=== PATIENT | male | born 1985 | race Hispanic/Latino ===

== ENCOUNTER 2019-05-22 12:09 | Observation (INO) | payer BC ==
[~2019-05-22] VITALS: Ht 175.3 cm; Wt 108.9 kg
[2019-05-22] MEDS ORDERED: SODIUM CHLORIDE 0.9% 1000ML 1,000 ML IV SCH (13:00)
[2019-05-22] MEDS ORDERED: SODIUM CHLORIDE 0.9% 1000ML 1,000 ML ONE ×2 (13:36→18:11)
[2019-05-22] MEDS ORDERED: VANCOMYCIN 1GM/NS 250 ML 250 ML ONE (13:36)
[2019-05-22] MEDS ORDERED: VANCOMYCIN 1GM/NS 250 ML 250 ML IV ONE (14:00)
[2019-05-22] MEDS ORDERED: IBUPROFEN 600 MG TAB PO STA (14:50)
--- NOTE | 2019-05-22 14:52 | Diagnostic Imaging Report ---
EXAM: Right Lower Extremity Duplex Ultrasound INDICATION: Swelling COMPARISON: None TECHNIQUE: Durant scale, color Doppler and spectral waveform analysis of the right lower extremity deep venous system was performed. FINDINGS: Common Femoral: Fully compressible with normal spontaneous waveforms. Proximal Greater Saphenous: Fully compressible. Femoral: Fully compressible with normal spontaneous waveforms. Normal response to augmentation. Proximal Deep Femoral: Normal spontaneous waveforms. Popliteal: Fully compressible with normal spontaneous waveforms. IMPRESSION: No evidence of deep venous thrombosis above the right calf. Signed by: Dr. Aracelis Arenas M.D. on 05/22/2019 2:49 PM
[2019-05-22] MEDS ORDERED: ACETAMINOPHEN 325 MG TAB PO ONE (15:00)
[2019-05-22] MEDS ORDERED: IBUPROFEN 200 MG TAB ONE (15:00)
[2019-05-22] MEDS ORDERED: ACETAMINOPHEN 325 MG TAB ONE (15:00)
[2019-05-22] MEDS ORDERED: PIPER-TAZ 3.375 GM 50 ML IV ONE (15:15)
[2019-05-22] MEDS ORDERED: PIPER-TAZ 3.375 GM 50 ML ONE (15:20)
[2019-05-22] MEDS ORDERED: ONDANSETRON HCL INJ 2MG/ML 2ML 2 MG/ML VIAL IV PRN (15:30)
[2019-05-22] MEDS ORDERED: MORPHINE SULFATE INJ 4 MG/ML INJ 1ML IV PRN (15:30)
--- OUTSIDE RECORDS SUMMARY | 2019-05-22 15:32 | XMS REPORT ---
Author Author [facility] Address Unknown Phone Unavailable Care Team Providers Care Transportation Escort Name Role Phone Simba MASON Unavailable Unavailable Problems This patient has no known problems. Allergies, Adverse Reactions, Alerts This patient has no known allergies or adverse reactions. Medications This patient has no known medications. Results Test Description Test Time Test Comments Text Results Atomic Results Result Comments US LOW EXT VEINS LIMITED UNI 2019-05-22 14:48:00 [place] [address] Patient Name: GODWIN CALABRESE MR #: [id number] : 1985 Age/Sex: 33/M Req #: [id number] Adm Physician: Ordered by: REGAN MASON MD Report #: [id number] Location: [facility] Room/Bed: Procedure: [id number] HOPD/US LOW EXT VEINS LIMITED UNI Exam Date: 05/22/19 Exam Time: 1433 REPORT STATUS: Signed EXAM: Right Lower Extremity Duplex Ultrasound INDICATION: Swelling COMPARISON: None TECHNIQUE: Durant scale, color Doppler and spectral waveform analysis of the right lower extremity deep venous system was performed. FINDINGS: Common Femoral: Fully compressible with normal spontaneous waveforms. Proximal Greater Saphenous: Fully compressible. Femoral: Fully compressible with normal spontaneous waveforms. Normal response to augmentation. Proximal Deep Femoral: Normal spontaneous waveforms. Popliteal: Fully compressible with normal spontaneous waveforms. IMPRESSION: No evidence of deep venous thrombosis above the right calf. Signed by: Dr. Colby Alcaraz M.D. on 05/22/2019 2:49 PM Dictated By: COLBY ALCARAZ MD 1444 Transcribed By: MARTINEZ on 05/22/191448 COPY TO: REGAN MASON MD
[2019-05-22] MEDS ORDERED: PIPER-TAZ 3.375 GM 50 ML IV SCH (16:00)
[2019-05-22] MEDS ORDERED: IBUPROFEN 600 MG TAB PO PRN (16:30)
[2019-05-22] MEDS ORDERED: ACETAMINOPHEN 325 MG TAB PO PRN (16:30)
--- NOTE | 2019-05-22 17:01 | NUR ---
[facility] called for transport
--- NOTE | 2019-05-22 17:50 | NUR ---
Report to DAWSON Davalos
[2019-05-22] MEDS: SODIUM CHLORIDE 0.9% 1000ML 1,000 ML IV SCH (18:00)
--- NOTE | 2019-05-22 19:00 | NUR ---
received report from day nurse. patient is a new admit. patient is resting comfortably in bed. bed is in lowest position and call benavides is within reach. will continue to monitor patient.
[2019-05-22 19:05] VITALS: BP 122/66
[2019-05-22 19:58] VITALS: BP 122/66
[2019-05-22 20:00] VITALS: BP 122/66
[2019-05-22] MEDS: PIPER-TAZ 3.375 GM 50 ML IV SCH (22:00)
[2019-05-23] VITALS (8 sets, daily range): BP systolic 120–127; BP diastolic 63–74
[2019-05-23] MEDS: PIPER-TAZ 3.375 GM 50 ML IV SCH ×4 (02:54→23:05)
[2019-05-23 06:06] LABS: BASOPHILS % 0.2 % (0.0-1.0); EOSINOPHILS # (AUTO) 0.1 (0.0-0.4); EOSINOPHILS % 1.3 % (0.0-6.0); HEMATOCRIT 35.2 % (38.2-49.6); HEMOGLOBIN 11.9 g/dL (14.0-18.0); LYMPHOCYTES # (AUTO) 0.6 (1.0-3.2); LYMPHOCYTES % 10.3 % (18.0-39.1); MEAN CORPUSCULAR HEMOGLOBIN 28.7 pg (28-32); MEAN CORPUSCULAR HGB CONC 33.8 g/dL (31-35); MEAN CORPUSCULAR VOLUME 84.8 fL (81-99); MONOCYTES # (AUTO) 0.4 (0.2-0.8); MONOCYTES % 6.8 % (4.4-11.3); NEUTROPHILS % 81.1 % (38.7-80.0); PLATELET COUNT 188 x10e3/uL (140-360); RED BLOOD COUNT 4.15 x10e6/uL (4.3-5.7); RED CELL DISTRIBUTION WIDTH 13.9 % (11.7-14.4)
[2019-05-23 06:34] LABS: ALANINE AMINOTRANSFERASE 79 IU/L (0-55); ALBUMIN 3.1 g/dL (3.5-5.0); ALBUMIN/GLOBULIN RATIO 0.7 (0.8-2.0); ALKALINE PHOSPHATASE 86 IU/L (40-150); ANION GAP 11.9 mmol/L (8-16); BLOOD UREA NITROGEN 11 mg/dL (7-26); BUN/CREATININE RATIO 11 (6-25); CALCIUM 8.9 mg/dL (8.4-10.2); CARBON DIOXIDE 25 mmol/L (22-29); CHLORIDE 103 mmol/L (98-107); EST GLOMERULAR FILTRATION RATE > 60 ML/MIN (60-); GLUCOSE 151 mg/dL (74-118); POTASSIUM 3.9 mmol/L (3.5-5.1); SODIUM 136 mmol/L (136-145)
--- NOTE | 2019-05-23 06:36 | NUR ---
report given to day nurse. patient is resting comfortably in bed. bed is in lowest position and call light is within reach.
[2019-05-23] MEDS: SODIUM CHLORIDE 0.9% 1000ML 1,000 ML IV SCH ×3 (07:18→20:36)
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
[2019-05-23 09:56] LABS: CHOL/HDL RATIO 2.9 (3.9-4.7)
[2019-05-23 11:05] LABS: BILIRUBIN,URINE NEGATIVE (NEGATIVE); CLARITY,URINE SL CLOUDY (CLEAR); COLOR,URINE YELLOW (YELLOW); KETONES,URINE NEGATIVE (NEGATIVE); LEUKOCYTE ESTERASE ,URINE NEGATIVE (NEGATIVE); NITRITE,URINE NEGATIVE (NEGATIVE); PROTEIN,URINE DIPSTICK TRACE (NEGATIVE); URINE UROBILINOGEN 4 mg/dL (0.2 - 1)
[2019-05-23 11:10] LABS: BACTERIA,URINE FEW /HPF; EPITHELIAL CELLS,URINE FEW /LPF; RBC,URINE 0-5 /HPF (0-5); WBC,URINE (MAN) 0-5 /HPF (0-5)
[2019-05-23] MEDS: CLINDAMYCIN 300MG 50 ML IV SCH ×2 (13:21→20:36)
--- NOTE | 2019-05-23 18:42 | NUR ---
Report given to oncoming nurse of patient's status. Resting in bed. No s/s of acute distress noted.
--- NOTE | 2019-05-23 18:52 | NUR ---
RECEIVED REPORT FROM DAY NURSE. PATIENT IS RESTING COMFORTABLY IN BED. BED IS IN LOWEST POSITION AND CALL GORDON IS WITHIN REACH. WILL CONTINUE TO MONITOR PATIENT.
[2019-05-24] MEDS: PIPER-TAZ 3.375 GM 50 ML IV SCH (03:28)
[2019-05-24 04:33] VITALS: BP 123/67
[2019-05-24] MEDS: SODIUM CHLORIDE 0.9% 1000ML 1,000 ML IV SCH (05:04)
[2019-05-24] MEDS: CLINDAMYCIN 300MG 50 ML IV SCH (05:04)
--- NOTE | 2019-05-24 06:32 | NUR ---
D/C summary Principal Dx: Cellulitis Sepsis Transaminitis Obesity BMI 35.4 Secondary Dx: Nicotine dependence PLAN IV abx IVF hba1c/lipids scd Dispo; Hba1c/LDL 6.6/32 d/c home f/u 1 week stable d/c>35mins Jarret Hicks MD, PhD.
[2019-05-24] MEDS ORDERED: CLINDAMYCIN HC300 MG PO (06:33)
--- NOTE | 2019-05-24 06:55 | NUR ---
REPORT GIVEN TO DAY NURSE. PATIENT IS RESTING COMFORTABLY IN BED. BED IS IN LOWEST POSITION AND CALL LIGHT IS WITHIN REACH.
[2019-05-24 07:38] VITALS: BP 134/87
[2019-05-24 07:43] VITALS: BP 131/87
--- NOTE | 2019-05-24 08:55 | NUR ---
patient alert and oriented. discharge instructions given at this time, patient verbalized understanding. IV discontinued, catheter in tact and small dressing applied. patient refused wheelchair assistance but will ambulate with assist to personal auto for significant other to drive home.
[2019-05-24] MEDS ORDERED: ONDANSETRON HCL 4 MG ORAL DISINTEGRATING TAB PO PRN (09:15)
== END 2019-05-24 09:00 | disposition home or self-care (01) ==
LOC: FSED 12:09 → ERHOLD 15:19 → IMCU 18:50
PROVIDERS: ADMIT Internal Medicine; ATTEND Internal Medicine
DX: A41.9 Sepsis, unspecified organism (principal); L03.115 Cellulitis of right lower limb; F17.210 Nicotine dependence, cigarettes, uncomplicated; E66.9 Obesity, unspecified; Z68.35 Body mass index [BMI] 35.0-35.9, adult
CPT/HCPCS: 36415; 80053 ×2; 80061; 81001; 83036; 85025 ×2; 85379; 87040; 93971; 99284; G0378 ×3; J2270; J2405; J2543 ×3; J3370; J7030 ×3

== ENCOUNTER 2020-04-29 09:36 | Emergency (ER) | payer SELFPAY ==
[~2020-04-29] VITALS: Ht 175.3 cm; Wt 119.4 kg
[~2020-04-29 09:36] MED LIST: CLINDAMYCIN HC300 MG PO
[2020-04-29] MEDS ORDERED: CLINDAMYCIN PHOS 600 MG/ 4 ML VIAL IM ONE (10:07)
[2020-04-29] MEDS ORDERED: PREDNISONE 20 MG TAB PO ONE (10:15)
[2020-04-29] MEDS ORDERED: KETOROLAC TROMETHAMINE 60 MG/2 ML VIAL IM ONE (10:15)
--- OUTSIDE RECORDS SUMMARY | 2020-04-29 10:17 | XMS REPORT | Continuity of Care Document ---
Author Author [facility] t Organization [facility] Address [address] [place] [address] Phone Unavailable Care Team Providers Care Agency Legal Counsel Name Role Phone NO, PCP PCP Unavailable Simba MASON Attphys Unavailable Payers Payer Name Policy Type Policy Number Effective Date Expiration Date S dorian [employer] [place] Ppo [id number] 2018 00:00:00 [facility] Problems This patient has no known problems. Allergies, Adverse Reactions, Alerts This patient has no known allergies or adverse reactions. Medications Ordered Medication Name Filled Medication Name Start Date Stop Da te Current Medication? Ordering Clinician Indication Dosage Frequency Signature (SIG) Comments Components Source Clindamycin Hcl 300 Mg Capsule Clindamycin Hcl 300 Mg Capsul e 2019-05-24 00:00:00 Yes Jarret Hicks Md 300 Every 8 Hours [facility] Procedures This patient has no known procedures. Encounters Start Date/Time End Date/Time Encounter Type Admission Type [facility] Care Department Encounter ID Source 2019-05-22 15:19:00 2019-05-24 09:00:00 Discharged Inpatient (obs) 1 REGAN MASON [facility] [id number] [facility] Results Test Description Test Time Test Comments Results Result Comments Source Blood Culture 2019-05-23 14:51:00 Test Item Blood Culture (test code = 89936800) NO GROWTH AFTER 24 HOURS [facility] [id number] 11:10:00* Test Item Value Reference Range Interpretation Comments Urine WBC (test code = 5821-4) 0-5 0-5 [facility] [id number] 11:10:00* Test Item Value Reference Range Interpretation Comments Urine RBC (test code = 07762-2) 0-5 0-5 [facility] Hagzxkar2775-41-91 11:10:00* Test Item Value Reference Range Interpretation Comments Urine Bacteria (test code = 96489-1) FEW NONE [facility] Epithelial [id number] 11:10:00 * Test Item Value Reference Range Interpretation Comments Urine Epithelial Cells (test code = 53373-1) FEW NONE [facility] Jzkfv9512-35-28 11:08:00* Test Item Value Reference Range Interpretation Comments Urine Color (test code = 5778-6) YELLOW YELLOW [facility] Tdbhfvp0433-38-25 11:08:00* Test Item Value Reference Range Interpretation Comments Urine Clarity (test code = 14572-6) SL CLOUDY CLEAR H [facility] Specific Znyqcnu6068-37-39 11:08:00 * Test Item Value Reference Range Interpretation Comments Urine Specific [place] (test code = 5811-5) 1.020 1.010-1.02 5 [facility] [id number] 11:08:00* Test Item Value Reference Range Interpretation Comments Urine pH (test code = 01629-0) 5.5 5-7 [facility] Leukocyte Gredfqmj6923-01-14 11:08:00* Test Item Value Reference Range Interpretation Comments Urine Leukocyte Esterase (test code = 00603-2) NEGATIVE NEGATIV E [facility] Shehbri4955-85-39 11:08:00* Test Item Value Reference Range Interpretation Comments Urine Nitrite (test code = 84316-5) NEGATIVE NEGATIVE [facility] Qmoebtn4626-12-24 11:08:00* Test Item Value Reference Range Interpretation Comments Urine Protein (test code = 32578-2) TRACE NEGATIVE H [facility] Glucose (UA)2019-05-23 11:08:00* Test Item Value Reference Range Interpretation Comments Urine Glucose (UA) (test code = 86145-7) NEGATIVE NEGATIVE [facility] Srwefgf8176-59-74 11:08:00* Test Item Value Reference Range Interpretation Comments Urine Ketones (test code = 13458-9) NEGATIVE NEGATIVE [facility] Iboxglauzdfs9184-66-60 11:08:00* Test Item Value Reference Range Interpretation Comments Urine Urobilinogen (test code = 46871-0) 4 0.2-1 [facility]ville[facility] Qbrjqzdks5491-86-19 11:08:00* Test Item Value Reference Range Interpretation Comments Urine Bilirubin (test code = 1977-8) NEGATIVE NEGATIVE [facility] Orvdt5360-35-12 11:08:00* Test Item Value Reference Range Interpretation Comments Urine Blood (test code = 51612-2) NEGATIVE NEGATIVE [facility]villeTriglycerides Rqqac8466-92-17 10:00:00* Test Item Value Reference Range Interpretation Comments Triglycerides Level (test code = 2571-8) 156 0-149 H [facility]villeCholesterol Hvqvj9565-31-81 10:00:00* Test Item Value Reference Range Interpretation Comments Cholesterol Level (test code = 2093-3) 96 0-199 Less than 200 mg/dL Low Zjjf644 - 239 mg/dL Borderline Bigt647 m g/dl and greater High Risk [facility]villeLDL Wlcuwknspjo6248-63-06 10:00:00* Test Item Value Reference Range Interpretation Comments LDL Cholesterol (test code = 2089-1) 32 60-130 L [facility]villeHDL Xbgyhnffokd3073-64-37 10:00:00* Test Item Value Reference Range Interpretation Comments HDL Cholesterol (test code = 2085-9) 33 40-60 L [facility]villeCholesterol/HDL Ipcfs7958-16-44 10:00:00 * Test Item Value Reference Range Interpretation Comments Cholesterol/HDL Ratio (test code = 9830-1) 2.9 3.9-4.7 L [facility]villeHemoglobin A1c Msckerh0160-47-91 09:54:00 * Test Item Value Reference Range Interpretation Comments Hemoglobin A1c Percent (test code = Hemoglobin A1c Percent) 6.6 4.0-7.0 [facility] Yqcjx4073-79-88 06:34:00* Test Item Value Reference Range Interpretation Comments Sodium Level (test code = 2951-2) 136 136-145 [facility]villePotassium Vrnkn4724-32-30 06:34:00* Test Item Value Reference Range Interpretation Comments Potassium Level (test code = 2823-3) 3.9 3.5-5.1 [facility]villeChloride Mbjev8597-04-45 06:34:00* Test Item Value Reference Range Interpretation Comments Chloride Level (test code = 2075-0) 103 98-107 [facility]villeCarbon Dioxide Rvttq8189-15-53 06:34:00* Test Item Value Reference Range Interpretation Comments Carbon Dioxide Level (test code = 2028-9) 25 22-29 [facility]villeAnion Kxs4522-95-97 06:34:00* Test Item Value Reference Range Interpretation Comments Anion Gap (test code = 51487-3) 11.9 8-16 [facility]villeBlood Urea Knamvrxx2380-65-28 06:34:00* Test Item Value Reference Range Interpretation Comments Blood Urea Nitrogen (test code = 3094-0) 11 7-26 [facility]villeCreatinine2019-09-15 06:34:00* Test Item Value Reference Range Interpretation Comments Creatinine (test code = 2160-0) 1.00 0.72-1.25 [facility]villeBUN/Creatinine Wulkw1737-69-38 06:34:00* Test Item Value Reference Range Interpretation Comments BUN/Creatinine Ratio (test code = 3097-3) 11 6-25 [facility] BrownsvilleEstimat Glomerular Filtration Rate 2019-05-23 06:34:00* Test Item Value Reference Range Interpretation Comments Estimat Glomerular Filtration Rate (test code = 066045747) > 60 >60 Ranges were taken from the National Kidney Disease Education Program and the [place] count includes the [facility] Kidney Foundation literature.Reference ranges:60 or greater: Axxlpk70-87 ( for 3 consecutive months): Chronic kidney disease 15 or less: Kidney failureVal[facility] – [facility]villeGlucose Cldsd8372-49-19 06:34:00* Test Item Value Reference Range Interpretation Comments Glucose Level (test code = CCM0929) 151 74-118 H [facility]villeCalcium Cyvlt7949-87-24 06:34:00* Test Item Value Reference Range Interpretation Comments Calcium Level (test code = 01650-3) 8.9 8.4-10.2 [facility] BrownsvilleTotal Opjsbeoim7390-12-66 06:34:00* Test Item Value Reference Range Interpretation Comments Total Bilirubin (test code = 1975-2) 1.3 0.2-1.2 H [facility] BrownsvilleAspartate Amino Transf (AST/SGOT) 2019-05-23 06:34:00* Test Item Value Reference Range Interpretation Comments Aspartate Amino Transf (AST/SGOT) (test code = Aspartate Amino Transf (AST/SGOT)) 68 5-34 H [facility] BrownsvilleAlanine Aminotransferase (ALT/SGPT) 2019-05-23 06:34:00* Test Item Value Reference Range Interpretation Comments Alanine Aminotransferase (ALT/SGPT) (test code = 1742-6) 79 0-55 H [facility] Ghwllrn7105-89-18 06:34:00* Test Item Value Reference Range Interpretation Comments Total Protein (test code = 2885-2) 7.7 6.5-8.1 [facility] BrownsvilleAlbumin2019-09-15 06:34:00* Test Item Value Reference Range Interpretation Comments Albumin (test code = 1751-7) 3.1 3.5-5.0 L [facility] BrownsvilleGlobulin2019-09-15 06:34:00* Test Item Value Reference Range Interpretation Comments Globulin (test code = 19046-0) 4.6 2.3-3.5 H [facility] BrownsvilleAlbumin/Globulin Bztuj5005-09-35 06:34:00 * Test Item Value Reference Range Interpretation Comments Albumin/Globulin Ratio (test code = 1759-0) 0.7 0.8-2.0 L [facility]villeAlkaline Ypasxuuoqzt6690-68-61 06:34:00* Test Item Value Reference Range Interpretation Comments Alkaline Phosphatase (test code = 6768-6) 86 40-150 [facility]villeWhite Blood Nbvcd6058-88-25 06:14:00* Test Item Value Reference Range Interpretation Comments White Blood Count (test code = 6690-2) 6.14 4.8-10.8 [facility]villeRed Blood Ieuei0986-21-26 06:14:00* Test Item Value Reference Range Interpretation Comments Red Blood Count (test code = 789-8) 4.15 4.3-5.7 L [facility]villeHemoglobin2019-09-15 06:14:00* Test Item Value Reference Range Interpretation Comments Hemoglobin (test code = 71843-0) 11.9 14.0-18.0 L [facility]villeHematocrit2019-09-15 06:14:00* Test Item Value Reference Range Interpretation Comments Hematocrit (test code = 4544-3) 35.2 38.2-49.6 L [facility] BrownsvilleMean Corpuscular Jnsmur0121-04-36 06:14:00* Test Item Value Reference Range Interpretation Comments Mean Corpuscular Volume (test code = 787-2) 84.8 81-99 [facility] BrownsvilleMean Corpuscular Beorejzaxr8515-50-65 06:14:00* Test Item Value Reference Range Interpretation Comments Mean Corpuscular Hemoglobin (test code = 785-6) 28.7 28-32 [facility] BrownsvilleMean Corpuscular Hemoglobin Concent 2019-05-23 06:14:00* Test Item Value Reference Range Interpretation Comments Mean Corpuscular Hemoglobin Concent (test code = 786-4) 33.8 31-35 [facility]villeRed Cell Distribution Ydajw7902-24-69 06:14:00* Test Item Value Reference Range Interpretation Comments Red Cell Distribution Width (test code = 32228-9) 13.9 11.7 -14.4 [facility] BrownsvillePlatelet Bfibd8604-65-72 06:14:00* Test Item Value Reference Range Interpretation Comments Platelet Count (test code = 777-3) 188 140-360 [facility]villeNeutrophils (%) (Auto)2019-05-23 06:14:00 * Test Item Value Reference Range Interpretation Comments Neutrophils (%) (Auto) (test code = 39246-8) 81.1 38.7-80.0 H [facility] BrownsvilleLymphocytes (%) (Auto)2019-05-23 06:14:00 * Test Item Value Reference Range Interpretation Comments Lymphocytes (%) (Auto) (test code = 736-9) 10.3 18.0-39.1 L [facility]villeMonocytes (%) (Auto)2019-05-23 06:14:00* Test Item Value Reference Range Interpretation Comments Monocytes (%) (Auto) (test code = 5905-5) 6.8 4.4-11.3 [facility]villeEosinophils (%) (Auto)2019-05-23 06:14:00 * Test Item Value Reference Range Interpretation Comments Eosinophils (%) (Auto) (test code = 713-8) 1.3 0.0-6.0 [facility]villeBasophils (%) (Auto)2019-05-23 06:14:00* Test Item Value Reference Range Interpretation Comments Basophils (%) (Auto) (test code = 706-2) 0.2 0.0-1.0 [facility] BrownsvilleIM GRANULOCYTES %2019-05-23 06:14:00* Test Item Value Reference Range Interpretation Comments IM GRANULOCYTES % (test code = IM GRANULOCYTES %) 0.3 0.0- 1.0 [facility]villeNeutrophils # (Auto)2019-05-23 06:14:00* Test Item Value Reference Range Interpretation Comments Neutrophils # (Auto) (test code = 751-8) 5.0 2.1-6.9 [facility]villeLymphocytes # (Auto)2019-05-23 06:14:00* Test Item Value Reference Range Interpretation Comments Lymphocytes # (Auto) (test code = 78002-3) 0.6 1.0-3.2 L [facility]villeMonocytes # (Auto)2019-05-23 06:14:00* Test Item Value Reference Range Interpretation Comments Monocytes # (Auto) (test code = 742-7) 0.4 0.2-0.8 [facility]villeEosinophils # (Auto)2019-05-23 06:14:00* Test Item Value Reference Range Interpretation Comments Eosinophils # (Auto) (test code = 711-2) 0.1 0.0-0.4 [facility]villeBasophils # (Auto)2019-05-23 06:14:00* Test Item Value Reference Range Interpretation Comments Basophils # (Auto) (test code = 704-7) 0.0 0.0-0.1 [facility] BrownsvilleAbsolute Immature Granulocyte (auto 2019-05-23 06:14:00* Test Item Value Reference Range Interpretation Comments Absolute Immature Granulocyte (auto (patrizia t code = Absolute Immature Granulocyte (auto) 0.02 0-0.1 [facility] BrownsvilleUS LOW EXT VEINS LIMITED [id number] 14:48:00 [place] [address] Patient Name: GODWIN CALABRESE MR #: [id number] : 1985 Age/Sex: 33/M Req #: [id number] Adm Physician: Ordered by: REGAN MASON MD Report #: [id number] Location: [facility] Room/Bed: Procedure: [id number] -[id number] HOPD/US LOW EXT VEINS LIMITED UNI Exam Date: 05/22/19 Exam Time: 1433 REPORT STAT US: Signed EXAM: Right Lower Extremity Duplex Ultrasound INDICATION: Swel ling COMPARISON: None TECHNIQUE: Durant scale, color Doppler and spec tral waveform analysis of the right lower extremity deep venous system was per formed. FINDINGS: Common Femoral: Fully compressible with normal spo ntaneous waveforms. Proximal Greater Saphenous: Fully compressible. Femoral: Fully compressible with normal spontaneous waveforms. Normal resp onse to augmentation. Proximal Deep Femoral: Normal spontaneous wavefor ms. Popliteal: Fully compressible with normal spontaneous waveforms . IMPRESSION: No evidence of deep venous thrombosis above the righ t calf. Signed by: Dr. Colby Alcaraz M.D. on 05/22/2019 2:49 PM Dictated By: COLBY ALCARAZ MD 1449 Transcribed By: MARTINEZ on 05/22/19 144 COPY TO: REGAN MASON MD
[2020-04-29] MEDS ORDERED: PREDNISONE 20 MG TAB ONE (10:34)
[2020-04-29] MEDS ORDERED: CLINDAMYCIN PHOS 600 MG/ 4 ML VIAL ONE (10:34)
[2020-04-29] MEDS ORDERED: KETOROLAC TROMETHAMINE 60 MG/2 ML VIAL ONE (10:34)
[2020-04-29] MEDS ORDERED: PREDNISONE20 MG PO (10:55)
[2020-04-29] MEDS ORDERED: CLINDAMYCIN HC300 MG PO (10:55)
[2020-04-29] MEDS ORDERED: BACTRIM DS TAB1 EACH PO (10:55)
--- NOTE | 2020-04-29 10:56 | Emergency Department Note ---
History of Present Illnes History of Present Illness Chief Complaint: painful swollen rash suprapubic area History of Present Illness This is a 34 year old male. was doing well prior to this. 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: No Onset (how long ago): day(s) (1) Location: suprapubic Quality: sharp Radiation: Reports non-radiation Severity: moderate Onset quality: gradual Duration (how long): day(s) (1) Timing of current episode: constant Progression: worsening Chronicity: new Context: Denies recent illness, Denies recent surgery, Denies recent immobilization, Denies recent travel, Denies trauma/injury, Denies new medications, Denies hx of DVT/PE, Denies non-compliance w/ medications Relieving factors: none Exacerbating factors: movement Associated symptoms: Reports denies other symptoms Treatments prior to arrival: none Past Medical/Family History Physician Review I have reviewed the patient's past medical and family history. Any updates have been documented here. Past Medical History Recent Fever: No Clinical Suspicion of Infectio: No New/Unexplained Change in Ment: No Past Medical History: None Other Surgery: skin graft right foot Social History Smoking Cessation: Current some day smoker Counseling Performed: Yes Alcohol Use: Occasional Any Illegal Drug Use: No Physically hurt or threatened: No Other Any Pre-Existing Lines (PICC,: No Review of Systems Review of Systems Constitutional: Reports no symptoms EENTM: Reports no symptoms Cardiovascular: Reports no symptoms Respiratory: Reports no symptoms Gastrointestinal: Reports no symptoms Genitourinary: Reports no symptoms Musculoskeletal: Reports no symptoms Integumentary: Reports as per HPI Neurological: Reports no symptoms Psychological: Reports no symptoms Endocrine: Reports no symptoms Hematological/Lymphatic: Reports no symptoms Review of other systems: All other systems negative Physical Exam Related Data Allergies: Coded Allergies: No Known Allergies (Unverified , 05/22/19) Triage Vital Signs Vital Signs Date Time Temp Pulse Resp B/P (MAP) Pulse Ox O2 Delivery O2 Flow Rate FiO2 04/29/20 09:40 98.2 115 18 150/89 97 Room Air Vital signs reviewed: Yes Physical Exam CONSTITUTIONAL Constitutional: Present well-developed, Present well-nourished, Present obese HENT HENT: Present normocephalic, Present atraumatic, Present oropharynx clear/moist, Present nose normal HENT L/R: Present left ext ear normal, Present right ext ear normal EYES Eyes: Reports PERRL, Reports conjunctivae normal NECK Neck: Present ROM normal PULMONARY Pulmonary: Present effort normal, Present breath sounds normal CARDIOVASCULAR Cardiovascular: Present regular rhythm, Present heart sounds normal, Present capillary refill normal, Present normal rate GASTROINTESTINAL Abdominal: Present soft, Present nontender, Present bowel sounds normal GENITOURINARY Genitourinary: Present exam deferred SKIN Skin: Present warm, Present dry, Present erythema (maculopapular blanching ten derness suprapubic area) MUSCULOSKELETAL Musculoskeletal: Present ROM normal NEUROLOGICAL Neurological: Present alert, Present oriented x 3, Present no gross motor or sensory deficits PSYCHOLOGICAL Psychological: Present mood/affect normal, Present judgement normal Assessment & Plan Medical Decision Making MDM cellulitis Reassessment Reassessment time: 10:45 Reassessment pain is down to a 2 Assessment & Plan Final Impression: (1) Cellulitis Depart Disposition: HOME, SELF-CARE Last Vital Signs Date Time Temp Pulse Resp B/P (MAP) Pulse Ox O2 Delivery O2 Flow Rate FiO2 04/29/20 09:40 98.2 115 18 150/89 97 Room Air Home Meds Active Scripts Prednisone (PREDNISONE) 20 Mg Tab, 60 MG PO DAILY PRN for MODERATE PAIN (4-6), #9 TAB take 3 20 mg pills at once. START TOMORROW Prov:BART CORREIA 04/29/20 Clindamycin Hcl (CLINDAMYCIN HCL) 300 Mg Capsule, 300 MG PO Q6H, #40 TAB Prov:BART CORREIA 04/29/20 Sulfamethoxazole/Trimethoprim (BACTRIM DS TABLET) 1 Each Tablet, 1 TAB PO Q12H, #28 TAB Prov:BART CORREIA 04/29/20 Clindamycin Hcl (CLINDAMYCIN HCL) 300 Mg Capsule, 300 MG PO Q8H for 10 Days Prov:AMANDO GUERRERO MD 05/24/19 Medications in the ED Clindamycin Phosphate 600 mg ONCE ONCE IM ; Start 04/29/20 at 10:07; Stop 04/29/20 at 10:08 Ketorolac Tromethamine 60 mg ONCE ONCE IM ; Start 04/29/20 at 10:15; Stop 8/22/20 at 10:16 Prednisone 80 mg ONCE ONCE PO ; Start 04/29/20 at 10:15; Stop 04/29/20 at 10:16 Prednisone 80 mg STK-MED ONCE .ROUTE ; Start 04/29/20 at 10:34; Stop 04/29/20 at 10:29; Status DC Ketorolac Tromethamine 60 mg STK-MED ONCE .ROUTE ; Start 04/29/20 at 10:34; Sto p 04/29/20 at 10:29; Status DC Clindamycin Phosphate 600 mg STK-MED ONCE .ROUTE ; Start 04/29/20 at 10:34; Stop 04/29/20 at 10:29; Status DC BART CORREIA Apr 29, 2020 10:56
[2020-04-29 11:11] VITALS: BP 143/87
== END 2020-04-29 11:06 | disposition home or self-care (01) ==
LOC: FSED 09:36
DX: L03.311 Cellulitis of abdominal wall (principal); R10.32 Left lower quadrant pain
CPT/HCPCS: 96372; 99283